=== PATIENT | male | born 1995 | race African-American/Black ===

== ENCOUNTER 2022-06-28 00:39 | Emergency (ER) | payer OTHER ==
[~2022-06-28] VITALS: Ht 180.3 cm; Wt 91.0 kg
[2022-06-28] MEDS ORDERED: KETOROLAC 60MG/2ML VIAL IM ONE (03:30)
[2022-06-28] MEDS ORDERED: BENZ7GEL8 MT (03:31)
[2022-06-28] MEDS ORDERED: IBUP-2030 MT (03:31)
[2022-06-28 03:44] VITALS: BP 149/97
== END 2022-06-28 03:45 | disposition home or self-care (01) ==
LOC: ER 00:39
DX: K08.89 Other specified disorders of teeth and supporting structures (principal); I10 Essential (primary) hypertension
CPT/HCPCS: 96372; 99283; J1885; Z7610